=== PATIENT | female | born 1995 | race Caucasian/White ===

== ENCOUNTER 2017-12-01 04:46 | Emergency (ER) | payer OTHER ==
[~2017-12-01] VITALS: Ht 157.5 cm; Wt 59.0 kg
[2017-12-01] MEDS ORDERED: TRAZODONE HCL100 MG PO (04:55)
[2017-12-01] MEDS ORDERED: KLONOPIN0.5 MG PO (04:55)
[2017-12-01] MEDS ORDERED: CYMBALTA30 MG PO (04:55)
[2017-12-01] MEDS ORDERED: HYDROCODONE-AP1 EAC6 PO (05:03)
[2017-12-01] MEDS ORDERED: PENICILLIN VK250 MG PO (05:03)
[2017-12-01 05:18] VITALS: BP 131/68
== END 2017-12-01 05:20 | disposition home or self-care (01) ==
LOC: M.ERS 04:46
DX: K08.89 Other specified disorders of teeth and supporting structures (principal)

== ENCOUNTER 2019-05-14 10:56 | Emergency (ER) | payer OTHER ==
[~2019-05-14] VITALS: Ht 157.5 cm; Wt 61.2 kg
[~2019-05-14 10:56] MED LIST: CYMBALTA30 MG PO; HYDROCODONE-AP1 EAC6 PO; KLONOPIN0.5 MG PO; PENICILLIN VK250 MG PO; TRAZODONE HCL100 MG PO
[2019-05-14] MEDS ORDERED: DOXYCYCLINE MO100 M1 PO ×2 (11:06→11:13)
[2019-05-14 11:09] VITALS: BP 133/57
[2019-05-14] MEDS ORDERED: ACETAMINOPHEN-1 EAC1 PO (11:13)
== END 2019-05-14 11:37 | disposition home or self-care (01) ==
LOC: M.ERS 10:56
DX: L02.412 Cutaneous abscess of left axilla (principal); Z98.890 Other specified postprocedural states

== ENCOUNTER 2019-08-01 10:49 | Emergency (ER) | payer OTHER ==
[~2019-08-01] VITALS: Ht 157.5 cm; Wt 59.0 kg
[~2019-08-01 10:49] MED LIST changes: +ACETAMINOPHEN-1 EAC1 PO; +DOXYCYCLINE MO100 M1 PO
[2019-08-01 11:57] LABS: INFLUENZA A ANTIGEN Negative (Negative); INFLUENZA B ANTIGEN Negative (Negative)
[2019-08-01] MEDS ORDERED: AZITHROMYCIN500 MG PO (12:16)
[2019-08-01] MEDS ORDERED: MEDROLDOSEPACK PO (12:16)
[2019-08-01] MEDS ORDERED: VENTOLIN HFA 1818 GM INH (12:16)
[2019-08-01 12:35] VITALS: BP 123/87
== END 2019-08-01 12:38 | disposition home or self-care (01) ==
LOC: M.ERS 10:49
PROVIDERS: Nurse Practitioner Family
DX: J20.9 Acute bronchitis, unspecified (principal); Z98.890 Other specified postprocedural states

== ENCOUNTER 2019-11-14 08:50 | Emergency (ER) | payer OTHER ==
[~2019-11-14] VITALS: Ht 157.5 cm; Wt 59.0 kg
[~2019-11-14 08:50] MED LIST changes: +AZITHROMYCIN500 MG PO; +MEDROLDOSEPACK PO; +VENTOLIN HFA 1818 GM INH
[2019-11-14] MEDS ORDERED: ZPAK PO (09:47)
[2019-11-14] MEDS ORDERED: PREDNISONE 20 M20 M1 PO (09:47)
[2019-11-14 09:51] VITALS: BP 112/79
== END 2019-11-14 09:53 | disposition home or self-care (01) ==
LOC: M.ERS 08:50
DX: J40 Bronchitis, not specified as acute or chronic (principal); F17.200 Nicotine dependence, unspecified, uncomplicated; Z98.890 Other specified postprocedural states

== ENCOUNTER 2020-08-23 11:02 | Emergency (ER) | payer OTHER ==
[~2020-08-23] VITALS: Ht 157.5 cm; Wt 59.0 kg
[~2020-08-23 11:02] MED LIST changes: +PREDNISONE 20 M20 M1 PO; +ZPAK PO
[2020-08-23 12:11] VITALS: BP 149/72
== END 2020-08-23 12:11 | disposition home or self-care (01) ==
LOC: M.ERS 11:02
DX: Z20.828 Contact with and (suspected) exposure to other viral communicable diseases (principal); Z98.890 Other specified postprocedural states

== ENCOUNTER 2021-01-15 17:25 | Emergency (ER) | payer OTHER ==
[~2021-01-15] VITALS: Ht 157.5 cm; Wt 63.5 kg
[2021-01-15 18:10] LABS: ABSOLUTE BASOPHILS 0.2 thou/uL (0.0-0.2); ABSOLUTE EOSINOPHILS 0.1 thou/uL (0.0-0.7); ABSOLUTE LYMPHOCYTES 2.5 thou/uL (0.8-5.3); ABSOLUTE MONOCYTES 0.9 thou/uL (0.0-1.2); ABSOLUTE NEUTROPHILS 10.4 thou/uL (1.6-8.1); BASOPHILS 1.5 %; EOSINOPHILS 0.4 %; HEMATOCRIT 40.2 % (37.0-47.0); HEMOGLOBIN 12.9 gm/dL (12.0-15.0); LYMPHOCYTES 17.8 %; MCH 27.6 pg (26.0-34.0); MCHC 32.1 g/dL (28.0-37.0); MONOCYTES 6.2 %; MPV 7.7 fl. (7.2-11.1); NUCLEATED RBCS 0 /100WBC; PLATELET COUNT* 320 thou/uL (150-400); POLYS 74.1 %; RBC 4.68 mil/uL (4.20-5.00); RDW-CV 14.7 % (10.5-14.5)
[2021-01-15 18:18] LABS: CALCIUM 9.1 mg/dL (8.5-10.1); CREATININE 0.9 mg/dL (0.6-1.3); POTASSIUM 3.6 mmol/L (3.5-5.1)
[2021-01-15 18:22] LABS: TOTAL BILIRUBIN 0.6 mg/dL (<0.1-1.0); TOTAL PROTEIN 7.7 g/dL (6.4-8.2)
[2021-01-15 20:09] LABS: URINE BILIRUBIN NEGATIVE (Negative); URINE BLOOD NEGATIVE (Negative); URINE COLOR YELLOW; URINE GLUCOSE-RANDOM NEGATIVE (Negative); URINE KETONES 2+ (Negative); URINE LEUKOCYTES-REFLEX 1+ (Negative); URINE NITRITE-REFLEX NEGATIVE (Negative); URINE PROTEIN TRACE (Negative); URINE UROBILINOGEN 0.2 E.U./dl (0.2-1.0)
[2021-01-15 20:10] LABS: URINE CLARITY CLOUDY
[2021-01-15 20:17] LABS: SQUAMOUS >10 Many /LPF (0-3); URINE WBC-REFLEX 0-5 Rare /HPF (0-5)
[2021-01-15 20:18] LABS: BACTERIA-REFLEX 1-9 Few /HPF (None Seen); CASTS None Seen /LPF (None Seen); CRYSTALS None Seen /LPF (None Seen); URINE RBC None Seen /HPF (0-2)
[2021-01-15] MEDS ORDERED: ONDANSETRON ODT4 MG PO (20:25)
[2021-01-15 20:43] VITALS: BP 108/64
== END 2021-01-15 20:43 | disposition home or self-care (01) ==
LOC: M.ERS 17:25
PROVIDERS: Physician Assistant
DX: R11.2 Nausea with vomiting, unspecified (principal); Z98.890 Other specified postprocedural states

== ENCOUNTER 2021-07-27 11:30 | Emergency (ER) | payer OTHER ==
[~2021-07-27] VITALS: Ht 157.5 cm; Wt 63.5 kg
[~2021-07-27 11:30] MED LIST changes: +ONDANSETRON ODT4 MG PO
[2021-07-27 12:27] VITALS: BP 123/81
== END 2021-07-27 12:28 | disposition home or self-care (01) ==
LOC: M.ERS 11:30
DX: J00 Acute nasopharyngitis [common cold] (principal); Z20.822 Contact with and (suspected) exposure to COVID-19

== ENCOUNTER 2021-08-29 11:49 | Emergency (ER) | payer OTHER ==
[~2021-08-29] VITALS: Ht 157.5 cm; Wt 63.5 kg
[2021-08-29] MEDS ORDERED: AMOXICILLIN 50500 MG PO (12:16)
[2021-08-29] MEDS ORDERED: VENTOLIN HFA 1818 GM INH (12:16)
[2021-08-29 12:27] VITALS: BP 139/83
== END 2021-08-29 12:27 | disposition home or self-care (01) ==
LOC: M.ERS 11:49
DX: H66.92 Otitis media, unspecified, left ear (principal); J20.9 Acute bronchitis, unspecified